=== PATIENT | female | born 1945 | race Caucasian/White ===

== ENCOUNTER → 2019-05-31 09:12 | Outpatient (CLI) | payer MEDICARE, OTHER, SELFPAY ==
--- NOTE | ~2019-05-31 | DEXA_ITS ---
Bone Density Report Name: Miguelina Parra Age: 73 Sex: Female Ethnicity: White Date of : 1945 Indication: postmenopausal; screening for osteoporosis; parental hip fracture; height loss; prior fracture; hysterectomy; Referring Provider: BARD DEE Study: Bone densitometry was performed. Exam Date: May 31, 2019 Accession number: [id number] Bone Density: Region BMD T-score Z-score Classification AP Spine (L1, L2, L3) 0.971 -0.4 1.8 Normal Femoral Neck (Left) 0.687 -1.5 0.5 Osteopenia Total Hip (Left) 0.898 -0.4 1.3 Normal Femoral Neck (Right) 0.654 -1.8 0.2 Osteopenia Total Hip (Right) 0.881 -0.5 1.2 Normal Total Hip Mean 0.890 -0.5 1.3 Normal World Health Organization criteria for BMD impression classify patients as: Normal (T-score at or above -1.0), Osteopenia (T-score between -1.0 and -2.5), or Osteoporosis (T-score at or below -2.5). 10-year Fracture Risk(1): Major Osteoporotic Fracture 26% Hip Fracture 11% Reported Risk Factors: [place] (), Neck BMD=0.654, BMI=22.0, previous fracture, parental fracture (1) FRAX(R) Version 3.08. Fracture probability calculated for an untreated patient. Fracture probability may be lower if the patient has received treatment. Previous Exams: Region Exam Age BMD T-score BMD Change BMD Change Date g/cm2 vs Baseline vs Previous AP Spine(L1, L2, L3) 05/31/2019 73 0.971 -0.4 0.122* 0.030* 05/26/2017 71 0.941 -0.7 0.092* -0.007 05/22/2015 69 0.948 -0.6 0.099* 0.030* 05/10/2013 67 0.917 -0.9 0.069* 0.022 04/02/2011 65 0.895 -1.1 0.046* 0.055* 03/27/2009 63 0.840 -1.6 -0.008 -0.024* 03/16/2008 62 0.864 -1.4 0.015 0.013 07/11/2006 60 0.851 -1.5 0.003 0.003 01/21/2005 59 0.848 -1.5 Total Hip(Left) 05/31/2019 73 0.898 -0.4 -0.002 -0.021 05/26/2017 71 0.920 -0.2 0.019 0.061* 05/22/2015 69 0.859 -0.7 -0.042* 0.057* 05/10/2013 67 0.802 -1.1 -0.099* -0.007 04/02/2011 65 0.808 -1.1 -0.092* 0.046* 03/27/2009 63 0.763 -1.5 -0.138* -0.067* 03/16/2008 62 0.830 -0.9 -0.071* 0.059* 07/11/2006 60 0.771 -1.4 -0.130* -0.130* 01/21/2005 59 0.901 -0.3 Total Hip(Right) 05/31/2019 73 0.881 -0.5 0.049* 0.012 05/26/2017 71 0.870 -0.6 0.037* 0.019 05/22/2015 69 0.851 -0.7 0.018
== END ==
PROVIDERS: Visit Provider Obstetrics & Gynecology Gynecology
DX: Z78.0 Asymptomatic menopausal state (principal); M85.852 Other specified disorders of bone density and structure, left thigh; M85.851 Other specified disorders of bone density and structure, right thigh
CPT/HCPCS: 77080

== ENCOUNTER → 2019-12-01 13:41 | Outpatient (CLI) | payer MEDICARE, OTHER, SELFPAY ==
--- NOTE | ~2019-12-01 | MM_ITS ---
EXAMINATION: MM screening [facility] BI w ronni HISTORY: Screening TECHNIQUE: Craniocaudal and mediolateral oblique 3-D tomosynthesis images were obtained and synthetic 2-D images were generated. CAD analysis was submitted and interpreted. COMPARISON: Comparison to multiple prior studies sequentially, with oldest reviewed study dated 09/11. BREAST PARENCHYMAL COMPOSITION: The breasts are heterogeneously dense, which may obscure small masses . FINDINGS: There is no evidence of suspicious mass, calcification, or architectural distortion to sugg est malignancy in either breast. There has been no suspicious interval change. IMPRESSION: 1. No mammographic evidence of malignancy. 2. Recommend routine screening mammography in one year. BI-RADS Category 1: Negative Reviewed, dictated and finalized at location A.
== END ==
PROVIDERS: Visit Provider Obstetrics & Gynecology Gynecology
DX: Z12.31 Encounter for screening mammogram for malignant neoplasm of breast (principal)
CPT/HCPCS: 77063; 77067

== ENCOUNTER → 2021-01-03 12:14 | Outpatient (CLI) | payer MEDICARE, OTHER, SELFPAY ==
--- NOTE | ~2021-01-03 | MM_ITS ---
EXAMINATION: MM screening [facility] BI w ronni HISTORY: Screening mammogram TECHNIQUE: Craniocaudal and mediolateral oblique 3-D tomosynthesis images were obtained and synthetic 2-D images were generated. CAD analysis was submitted and interpreted. COMPARISON: 12/01/2019, 10/16/2018, 09/30/2017 BREAST PARENCHYMAL COMPOSITION: The breasts are heterogeneously dense, which may obscure small masses . FINDINGS: There is no evidence of suspicious mass, calcification, or architectural distortion to sugg est malignancy in either breast. There has been no suspicious interval change. IMPRESSION: 1. No mammographic evidence of malignancy. 2. Recommend routine screening mammography in one year. BI-RADS Category 1: Negative Reviewed, dictated and finalized at location A.
== END ==
PROVIDERS: Visit Provider Obstetrics & Gynecology Gynecology
DX: Z12.31 Encounter for screening mammogram for malignant neoplasm of breast (principal)
CPT/HCPCS: 77063; 77067

== ENCOUNTER → 2022-03-28 14:14 | Outpatient (CLI) | payer MEDICARE, OTHER, SELFPAY ==
--- NOTE | ~2022-03-28 | MM_ITS ---
EXAMINATION: MM screening [facility] BI w ronni HISTORY: Screening mammogram TECHNIQUE: Craniocaudal and mediolateral oblique 3-D tomosynthesis images were obtained and synthetic 2-D images were generated. CAD analysis was submitted and interpreted. COMPARISON: 01/03/2021, 12/01/2019, 10/06/2018 bilateral screening mammogram examinations BREAST PARENCHYMAL COMPOSITION: The breasts are heterogeneously dense, which may obscure small masses . FINDINGS: There is no evidence of suspicious mass, calcification, or architectural distortion to sugg est malignancy in either breast. There has been no suspicious interval change. IMPRESSION: 1. No mammographic evidence of malignancy. 2. Recommend routine screening mammography in one year. BI-RADS Category 1: Negative Reviewed, dictated and finalized at location A. 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
== END ==
PROVIDERS: Visit Provider Obstetrics & Gynecology Gynecology
DX: Z12.31 Encounter for screening mammogram for malignant neoplasm of breast (principal)
CPT/HCPCS: 77063; 77067

== ENCOUNTER → 2022-06-27 11:43 | Outpatient (CLI) | payer MEDICARE, SELFPAY ==
--- NOTE | ~2022-06-27 | DEXA_ITS ---
Bone Density Report Name: DONAL ESCOBAR Age: 76 Sex: Female Ethnicity: White Date of : 1945 Indication: postmenopausal; screening for osteoporosis; parental hip fracture; prior fracture; hysterectomy; Referring Provider: BRAD DEE Study: Bone densitometry was performed. Exam Date: June 27, 2022 Accession number: [id number] Bone Density: Region BMD T-score Z-score Classification AP Spine (L1-L4) 1.124 0.7 3.2 Normal Femoral Neck (Left) 0.687 -1.5 0.7 Osteopenia Total Hip (Left) 0.921 -0.2 1.7 Normal Femoral Neck (Right) 0.702 -1.3 0.8 Osteopenia Total Hip (Right) 0.902 -0.3 1.5 Normal Total Hip Mean 0.912 -0.3 1.6 Normal World Health Organization criteria for BMD impression classify patients as: Normal (T-score at or above -1.0), Osteopenia (T-score between -1.0 and -2.5), or Osteoporosis (T-score at or below -2.5). 10-year Fracture Risk(1): Major Osteoporotic Fracture 26% Hip Fracture 13% Reported Risk Factors: [place] (), Neck BMD=0.687, BMI=22.1, previous fracture, parental fracture (1) FRAX(R) Version 3.08. Fracture probability calculated for an untreated patient. Fracture probability may be lower if the patient has received treatment. Previous Exams: Region Exam Age BMD T-score BMD Change BMD Change Date g/cm2 vs Baseline vs Previous AP Spine(L1-L4) 06/27/2022 76 1.124 0.7 0.244* 0.129* 05/26/2017 71 0.995 -0.5 0.115* -0.007 05/22/2015 69 1.003 -0.4 0.122* 0.039* 05/10/2013 67 0.964 -0.8 0.083* 0.033* 04/02/2011 65 0.931 -1.1 0.051* 0.060* 03/27/2009 63 0.871 -1.6 -0.009 -0.036* 03/16/2008 62 0.907 -1.3 0.027* 0.022 07/11/2006 60 0.885 -1.5 0.005 0.005 01/21/2005 59 0.881 -1.5 Total Hip(Left) 06/27/2022 76 0.921 -0.2 0.020 0.022 05/31/2019 73 0.898 -0.4 -0.002 -0.021 05/26/2017 71 0.920 -0.2 0.019 0.061* 05/22/2015 69 0.859 -0.7 -0.042* 0.057* 05/10/2013 67 0.802 -1.1 -0.099* -0.007 04/02/2011 65 0.808 -1.1 -0.092* 0.046* 03/27/2009 63 0.763 -1.5 -0.138* -0.067* 03/16/2008 62 0.830 -0.9 -0.071* 0.059* 07/11/2006 60 0.771 -1.4 -0.130* -0.130* 01/21/2005 59 0.901 -0.3 Total Hip(Right) 06/27/2022 76 0.902 -0.3 0.070* 0.021 05/31/2019 73 0.881 -0.5 0.049* 0.012 05/26
== END ==
PROVIDERS: PCP Obstetrics & Gynecology Gynecology; Visit Provider Obstetrics & Gynecology Gynecology
DX: Z78.0 Asymptomatic menopausal state (principal); M85.852 Other specified disorders of bone density and structure, left thigh; M85.851 Other specified disorders of bone density and structure, right thigh
CPT/HCPCS: 77080

== ENCOUNTER 2023-06-21 11:00 | Outpatient (CLI) | payer MEDICARE, SELFPAY ==
--- NOTE | ~2023-06-21 | MM_ITS ---
EXAMINATION: MM screening [facility] BI w ronni HISTORY: Screening mammogram TECHNIQUE: Craniocaudal and mediolateral oblique 3-D tomosynthesis images were obtained and synthetic 2-D images were generated. CAD analysis was submitted and interpreted. COMPARISON: 03/28/2022, 01/03/2021 bilateral screening mammogram examinations BREAST PARENCHYMAL COMPOSITION: The breasts are heterogeneously dense, which may obscure small masses . FINDINGS: There is no evidence of suspicious mass, calcification, or architectural distortion to sugg est malignancy in either breast. There has been no suspicious interval change. IMPRESSION: 1. No mammographic evidence of malignancy. 2. Recommend routine screening mammography in one year. BI-RADS Category 1: Negative Reviewed, dictated and finalized at location A.
== END 2023-06-21 11:01 ==
LOC: MICIMG 11:03
PROVIDERS: Visit Provider Obstetrics & Gynecology Gynecology
DX: Z12.31 Encounter for screening mammogram for malignant neoplasm of breast (principal)
CPT/HCPCS: 77063; 77067

== ENCOUNTER 2024-06-22 10:10 | Outpatient (CLI) | payer MEDICARE, SELFPAY ==
--- NOTE | ~2024-06-22 | MM_ITS ---
EXAMINATION: MM screening [facility] BI w ronni HISTORY: Screening TECHNIQUE: Craniocaudal and mediolateral oblique 3-D tomosynthesis images were obtained and synthetic 2-D images were generated. CAD analysis was submitted and interpreted. COMPARISON: 06/21/2023 and dating back to 12/01/2019 BREAST PARENCHYMAL COMPOSITION: The breasts are heterogeneously dense, which may obscure small masses . FINDINGS: Punctate calcifications are detected bilaterally, stable and benign in appearance. Stable parenchymal pattern without suspicious microcalcifications, architectural distortion, discrete masses or significant asymmetry. IMPRESSION: 1. No mammographic evidence of malignancy. 2. Recommend routine screening mammography in one year. BI-RADS Category 2: Benign finding(s). Reviewed, dictated and finalized at location A.
== END 2024-06-22 10:11 | disposition home or self-care (01) ==
LOC: MICIMG 10:10
PROVIDERS: Visit Provider Obstetrics & Gynecology Gynecology
DX: Z12.31 Encounter for screening mammogram for malignant neoplasm of breast (principal)
CPT/HCPCS: 77063; 77067

== ENCOUNTER 2024-10-12 12:26 | Outpatient (CLI) | payer MEDICARE, SELFPAY ==
--- NOTE | ~2024-10-12 | DEXA_ITS ---
Bone Density Report Name: DONAL ESCOBAR Age: 78 Sex: Female Ethnicity: White Date of : 1945 Indication: postmenopausal; screening for osteoporosis; parental hip fracture; height loss; prior fracture; cancer; hysterectomy; Referring Provider: BRAD DEE Study: Bone densitometry was performed. Exam Date: October 12, 2024 Accession number: [id number] Bone Density: Region BMD T-score Z-score Classification AP Spine(L1-L4) 1.116 0.6 3.2 Normal Femoral Neck (Left) 0.661 -1.7 0.6 Osteopenia Total Hip (Left) 0.913 -0.2 1.8 Normal Femoral Neck (Right) 0.669 -1.6 0.6 Osteopenia Total Hip (Right) 0.886 -0.5 1.5 Normal Total Hip Mean 0.900 -0.4 1.7 Normal World Health Organization criteria for BMD impression classify patients as: Normal (T-score at or above -1.0), Osteopenia (T-score between -1.0 and -2.5), or Osteoporosis (T-score at or below -2.5). 10-year Fracture Risk(1): Major Osteoporotic Fracture 28% Hip Fracture 16% Reported Risk Factors: [place] (), Neck BMD=0.661, BMI=19.9, previous fracture, parental fracture (1) FRAX(R) Version 3.08. Fracture probability calculated for an untreated patient. Fracture probability may be lower if the patient has received treatment. Previous Exams: -- Region Exam Age BMD T-score BMD Change BMD Change Date g/cm2 vs Baseline vs Previous -- AP Spine (L1-L4) 10/12/2024 78 1.116 0.6 26.7%* -0.7% 06/27/2022 76 1.124 0.7 27.7%* 12.9%* 05/26/2017 71 0.995 -0.5 13.0%* -0.7% 05/22/2015 69 1.003 -0.4 13.9%* 4.0%* 05/10/2013 67 0.964 -0.8 9.5%* 3.5%* 04/02/2011 65 0.931 -1.1 5.7%* 6.9%* 03/27/2009 63 0.871 -1.6 -1.0% -4.0%* 03/16/2008 62 0.907 -1.3 3.0%* 2.5% 07/11/2006 60 0.885 -1.5 0.5% 0.5% 01/21/2005 59 0.881 -1.5 Total Hip(Left) 10/12/2024 78 0.913 -0.2 1.4% -0.8% 06/27/2022 76 0.921 -0.2 2.2% 2.5% 05/31/2019 73 0.898 -0.4 -0.3% -2.3% 05/26/2017 71 0.920 -0.2 2.1% 7.1%* 05/22/2015 69 0.859 -0.7 -4.6%* 7.2%* 05/10/2013 67 0.802 -1.1 -11.0%* -0.8% 04/02/2011 65 0.808 -1.1 -10.3%* 6.0%* 03/27/2009 63 0.763 -1.5 -15.3%* -8.1%* 03/16/2008 62 0.830 -0.9 -7.9%* -7.9%* 01/21/2005 59 0.901 -0.3 Total Hip(Right) 10/12/2024 78 0.886 -0.5 6.5%* -1.8% 06/27/2022 76 0.902 -0.3 8.4%* 2.4% 05/31/2019 73 0.881 -0.5 5.9%* 1.3% 05/26/2017 71 0.870 -0.6 4.5%* 2.2% 05/22/2015 69 0.851 -0.7 2.2% 4.9%* 05/10/2013 67 0.811 -1.1 -2.5% 3.7%* 04/02/2011 65 0.782 -1.3 -6.0%* 0.2% 03/27/2009 63 0.781 -1.3 -6.2%* -4.2%* 03/16/2008 62 0.815 -1.0 -2.1% -2.1% 01/21/2005 59 0.832 -0.9 -- *Denotes significance at 95% confidence level, LSC for AP Spine = 0.022 g/cm2, LSC for Total Hip = 0.027 g/cm2 Clinical Information Provided by Patient: Has had a low trauma fracture Parent has had a hip fracture Has used the following medications: HRT (i.e. estrogen/hormone therapy), Reclast (i.e. zoledronate), Vitamin D, Calcium, QUIT RECLAST 2010 Has the following medical conditions: Cancer, Hysterectomy, HX OF ENDOMETRIAL CA -AGE 38 Patient maximum height was 66.0 Menopause Age: 38 Drinks caffeinated beverages Onset of menses at age 11 Number of children 2 Impression: The patient has low bone mass, based on the Left Femoral Neck T-score. The patient has an estimated ten-year risk of hip fracture of 16% and an estimated ten-year risk of major fracture of 28%, based on the WHO FRAX algorithm. The patient has risk factors, including: parental hip fracture, previous fracture. No significant bone loss was observed. Discussion: BONE DENSITY IS LOW AT ONE OR MORE SKELETAL SITES. THE PATIENT'S BMD AND CLINICAL RISK FACTORS CONTRIBUTE TO THIS PATIENT'S HIGH RISK OF FRACTURE. This patient's lowest T-score is low at one or more skeletal sites. It meets the World Health Organization's (WHO) criteria for ?low bone mass? (T-score between -1.0 and -2.5). The patient's 10-year risk of hip fracture and 10 year risk of a major osteoporotic fracture as calculated by FRAX exceeds the threshold where pharmacological therapy is recommended by the National Osteoporosis Foundation (NOF). However, all treatment decisions require clinical judgment and consideration of individual patient factors, including patient preferences, comorbidities, previous drug use, risk factors not captured in the FRAX model (e.g., frailty, falls, vitamin D deficiency, increased bone turnover, interval significant decline in bone density) and possible under or overestimation of fracture risk by FRAX. The patient should follow a healthful lifestyle (good nutrition with adequate calcium and vitamin D, and appropriate weight-bearing exercise). Follow-Up: Consider a repeat BMD and Vertebral Fracture Assessment (VFA) exam in 2 years or sooner if medically necessary, to reassess this patient's status. Reported by: RONALD on 10/12/2024 12:58:00 PM. Reviewed, dictated and finalized at location A.
== END 2024-10-12 12:27 | disposition home or self-care (01) ==
PROVIDERS: Visit Provider Obstetrics & Gynecology Gynecology
DX: M85.89 Other specified disorders of bone density and structure, multiple sites (principal); Z13.820 Encounter for screening for osteoporosis
CPT/HCPCS: 77080